=== PATIENT | female | born 1965 | race Caucasian/White ===

== ENCOUNTER 2017-10-25 13:22 | Emergency (ER) | payer OTHER ==
[~2017-10-25] VITALS: Ht 167.6 cm; Wt 72.6 kg
== END 2017-10-25 15:57 | disposition home or self-care (01) ==
LOC: ER 13:22
DX: N39.0 Urinary tract infection, site not specified (principal)

== ENCOUNTER → 2017-10-30 | Emergency (ER) | payer OTHER | END | disposition left against medical advice (07) | LOC: ER 12:30 | DX: Z53.20 Procedure and treatment not carried out because of patient's decision for unspecified reasons (principal) ==